=== PATIENT | female | born 1965 | race Caucasian/White ===

== ENCOUNTER 2017-04-17 09:16 | Outpatient (CLI) | payer OTHER ==
--- NOTE | 2017-04-17 17:27 | XRAY Report ---
FOUR VIEW LEFT WRIST: 04/17/2017 CLINICAL INDICATION: Pain. AP, lateral, oblique, scaphoid views of the left wrist demonstrate osteoarthritis of the first carpometacarpal joint. There is no evidence of acute fracture or dislocation. No radiopaque foreign body is seen in the soft tissues. IMPRESSION: Osteoarthritis of the first carpometacarpal joint. TD: 04/17/2017 18:19 [facility]
== END 2017-04-17 09:17 | disposition home or self-care (01) ==
LOC: DI.S 09:16
PROVIDERS: ATTEND Physician Assistant Medical
DX: M18.12 Unilateral primary osteoarthritis of first carpometacarpal joint, left hand (principal)

== ENCOUNTER 2017-04-18 08:00 | Outpatient (CLI) | payer OTHER ==
[2017-04-18 17:41] LABS: BASOPHILS # (AUTO) 0.1 10^3/uL (0.0-0.1); BASOPHILS % (AUTO) 1.5 %; EOSINOPHILS # (AUTO) 0.2 10^3/uL (0.0-0.7); HCT - HEMATOCRIT 42.6 % (37.0-47.0); LYMPHOCYTES # (AUTO) 1.1 10^3/uL (1.5-3.5); LYMPHOCYTES % (AUTO) 22.8 %; MEAN CORPUSCULAR HEMOGLOBIN 29.2 pg (27.0-31.0); MEAN CORPUSCULAR HGB CONC 32.9 g/dL (32.0-36.0); MEAN CORPUSCULAR VOLUME 88.7 fL (81.0-99.0); MONOCYTES # (AUTO) 0.4 10^3/uL (0.0-1.0); MONOCYTES % (AUTO) 7.9 %; NEUTROPHILS % (AUTO) 62.8 %; RED CELL DISTRIBUTION WIDTH 12.8 % (12.0-15.0); UNCORRECTED WHITE BLOOD COUNT 4.7 x10^3/uL; WHITE BLOOD COUNT 4.7 x10^3/uL (4.8-10.8)
[2017-04-18 18:41] LABS: ALBUMIN/GLOBULIN RATIO 1.2 (1.0-2.2); BILIRUBIN,TOTAL 0.5 mg/dL (0.2-1.0); BUN - BLOOD UREA NITROGEN 15 mg/dL (6-20); CALCIUM 9.4 mg/dL (8.5-10.3); CARBON DIOXIDE - CO2 28 mmol/L (21-32); CHLORIDE 102 mmol/L (101-111); CHOL/HDL RATIO 3.9 (<4.4); CHOLESTEROL 202 mg/dL; CREATININE 0.7 mg/dL (0.4-1.0); GFR - MDRD 88 (>89); GLUCOSE 88 mg/dL (70-100); HDL CHOLESTEROL 52 mg/dL; LDL/HDL RATIO 2.5 (<4.4); POTASSIUM 3.9 mmol/L (3.5-5.0); SODIUM 138 mmol/L (135-145); TOTAL PROTEIN 7.6 g/dL (6.7-8.2); TRIGLYCERIDES 99 mg/dL; VLDL CHOLESTEROL 20 mg/dL
== END 2017-04-18 08:01 | disposition home or self-care (01) ==
LOC: LAB.F 08:00
PROVIDERS: ATTEND Physician Assistant Medical
DX: Z00.00 Encounter for general adult medical examination without abnormal findings (principal); E55.9 Vitamin D deficiency, unspecified
CPT/HCPCS: 36415; 80053; 80061; 82306; 84443; 85025

== ENCOUNTER 2017-04-18 11:20 | Outpatient (CLI) | payer OTHER | END 2017-04-18 11:21 | disposition home or self-care (01) | LOC: LAB.F 11:20 | PROVIDERS: ATTEND Physician Assistant Medical | DX: Z00.00 Encounter for general adult medical examination without abnormal findings (principal); E55.9 Vitamin D deficiency, unspecified ==

== ENCOUNTER 2017-06-19 07:55 | Day surgery (SDC) | payer OTHER ==
[2017-06-19] MEDS ORDERED: LACTATED RINGERS 1,000 ML IV ONE (08:36)
[2017-06-19] MEDS ORDERED: MIDAZOLAM 2 MG/2 ML VIAL IVP ONE (08:51)
[2017-06-19] MEDS ORDERED: fentaNYL 100 MCG/2 ML VIAL IVP ONE (08:51)
[2017-06-19 10:00] VITALS: BP 109/71
== END 2017-06-19 07:56 | disposition home or self-care (01) ==
LOC: SDS 07:55
PROVIDERS: ATTEND Surgery
PROC: 0DBN8ZX Excision of Sigmoid Colon, Via Natural or Artificial Opening Endoscopic, Diagnostic (ICD-10-PCS; principal; 2017-06-19 09:00)
DX: Z12.11 Encounter for screening for malignant neoplasm of colon (principal); D12.5 Benign neoplasm of sigmoid colon; K64.8 Other hemorrhoids; K63.5 Polyp of colon; J45.909 Unspecified asthma, uncomplicated
CPT/HCPCS: 45380; J7120

== ENCOUNTER 2018-02-20 09:29 | Outpatient (CLI) | payer OTHER ==
[2018-02-20 18:18] LABS: BASOPHILS # (AUTO) 0.1 10^3/uL (0.0-0.1); BASOPHILS % (AUTO) 1.6 %; EOSINOPHILS # (AUTO) 0.3 10^3/uL (0.0-0.7); EOSINOPHILS % (AUTO) 5.9 %; LYMPHOCYTES % (AUTO) 21.7 %; MEAN CORPUSCULAR HEMOGLOBIN 29.5 pg (27.0-31.0); MEAN CORPUSCULAR HGB CONC 33.3 g/dL (32.0-36.0); MEAN CORPUSCULAR VOLUME 88.6 fL (81.0-99.0); MEAN PLATELET VOLUME 7.9 fL (7.9-10.8); MONOCYTES # (AUTO) 0.4 10^3/uL (0.0-1.0); MONOCYTES % (AUTO) 8.6 %; NEUTROPHILS # (AUTO) 2.8 10^3/uL (1.5-6.6); NEUTROPHILS % (AUTO) 62.2 %; PLT - PLATELET COUNT 296 10^3/uL (130-450); RED BLOOD COUNT 4.73 10^6/uL (4.20-5.40); RED CELL DISTRIBUTION WIDTH 12.9 % (12.0-15.0); WHITE BLOOD COUNT 4.5 x10^3/uL (4.8-10.8)
[2018-02-20 18:40] LABS: ALBUMIN 3.8 g/dL (3.2-5.5); ALBUMIN/GLOBULIN RATIO 1.1 (1.0-2.2); ALKALINE PHOSPHATASE 86 IU/L (42-121); ALT ALANINE AMINOTRANSFERASE 18 IU/L (10-60); AST ASPARTATE AMINOTRANSFERASE 19 IU/L (10-42); BUN - BLOOD UREA NITROGEN 12 mg/dL (6-20); CALCIUM 9.2 mg/dL (8.5-10.3); CARBON DIOXIDE - CO2 28 mmol/L (21-32); CHLORIDE 105 mmol/L (101-111); CHOL/HDL RATIO 3.5 (<4.4); CHOLESTEROL 232 mg/dL; CREATININE 0.7 mg/dL (0.4-1.0); GFR - MDRD 87 (>89); GLUCOSE 86 mg/dL (70-100); HDL CHOLESTEROL 67 mg/dL; LDL CHOLESTEROL,CALCULATED 143 mg/dL; LDL/HDL RATIO 2.1 (<4.4); SODIUM 140 mmol/L (135-145); TOTAL PROTEIN 7.4 g/dL (6.7-8.2); VLDL CHOLESTEROL 22 mg/dL
== END 2018-02-20 09:30 | disposition home or self-care (01) ==
LOC: LAB.F 09:29
PROVIDERS: ATTEND Physician Assistant Medical
DX: Z00.00 Encounter for general adult medical examination without abnormal findings (principal); I10 Essential (primary) hypertension; E78.70 Disorder of bile acid and cholesterol metabolism, unspecified; Z13.29 Encounter for screening for other suspected endocrine disorder
CPT/HCPCS: 36415; 80053; 80061; 83721; 84443; 85025

== ENCOUNTER 2018-12-17 09:02 | Outpatient (CLI) | payer OTHER ==
[2018-12-17 17:20] LABS: CHOL/HDL RATIO 3.9 (<4.4); CHOLESTEROL 238 mg/dL; HDL CHOLESTEROL 61 mg/dL; LDL CHOLESTEROL,CALCULATED 155 mg/dL; LDL/HDL RATIO 2.5 (<4.4); VLDL CHOLESTEROL 22 mg/dL
== END 2018-12-17 09:03 | disposition home or self-care (01) ==
LOC: LAB.S 09:02
PROVIDERS: ATTEND Physician Assistant Medical
DX: E78.00 Pure hypercholesterolemia, unspecified (principal); R53.83 Other fatigue; Z13.29 Encounter for screening for other suspected endocrine disorder
CPT/HCPCS: 36415; 80061; 83721; 84443

== ENCOUNTER 2019-07-09 09:51 | Outpatient (CLI) | payer OTHER ==
--- NOTE | 2019-07-09 13:09 | Mammography Report ---
Reason: RT BREAST PAIN Procedure Date: 07/09/2019 Accession Number: [id number] / [id number] Procedure: MIGUEL - Diagnostic Dig Bilat CPT Code: Final Report FULL RESULT: EXAM: Diagnostic Dig Bilat DATE: 07/09/2019 10:38 AM CLINICAL HISTORY: Right breast pain laterally towards the axilla. History of bilateral breast implants with subsequent removal on the left. TECHNIQUE: (B) - Bilateral CC and MLO views were obtained. Right ML view was also obtained and the right-sided images are performed in standard fashion and with implant displaced technique. COMPARISON: 02/15/2016 through 08/15/2009. PARENCHYMAL PATTERN: (A) - The breast(s) demonstrate(s) scattered fibroglandular densities. FINDINGS: A right breast retromammary silicone type implants with peripheral calcifications and loss of the smooth contour margin with lobulations which are most pronounced towards the right breast exam is noted. These findings are most consistent with contained implant rupture/loss of integrity, typically benign. There are no suspicious masses, calcifications, or areas of distortion. IMPRESSION: Benign findings. BI-RADS category 2. RECOMMENDATION: (ANNUAL) - Recommend routine annual screening mammography. The right breast implant rupture potentially accounts for the patient's pain. BI-RADS CATEGORY: (2) - Benign Findings. STANDARD QUALIFYING STATEMENTS: 1. This examination was not reviewed with the aid of Computer-Aided Detection (CAD). 2. A negative or benign imaging report should not preclude biopsy if clinically suspicious findings are present. 3. Dense breasts may obscure an underlying neoplasm. 4. This examination was reviewed with the aid of 3D breast imaging (tomosynthesis).
== END 2019-07-09 09:52 | disposition home or self-care (01) ==
LOC: DI 09:51
PROVIDERS: ATTEND Surgery
DX: N64.4 Mastodynia (principal); Z98.82 Breast implant status
CPT/HCPCS: 77066

== ENCOUNTER 2020-08-05 08:00 | Outpatient (CLI) | payer OTHER | END 2020-08-05 23:59 | disposition home or self-care (01) | LOC: LAB.S 08:00 | PROVIDERS: ATTEND Emergency Medicine | DX: L03.012 Cellulitis of left finger (principal) | CPT/HCPCS: 87070; 87205 ==

== ENCOUNTER 2020-10-02 14:26 | Outpatient (CLI) | payer OTHER ==
--- NOTE | 2020-10-02 11:16 | XRAY Report ---
PROCEDURE: Shoulder 3 View LT INDICATIONS: L SHOULDER PX TECHNIQUE: 4 views of the shoulder were acquired. COMPARISON: None. FINDINGS: Bones: No fractures or dislocations. No suspicious bony lesions. Visualized ribs appear intact. Soft tissues: No suspicious soft tissue calcifications. IMPRESSION: No acute fracture. No osseous lesion. If symptoms and/or clinical suspicion for patholog y continue, further assessment with repeat plain films, or advanced imaging (e.g., CT, MRI, or bone s can) is recommended for further assessment. Reviewed by: Shania Valenzuela MD on 10/02/2020 11:15 AM PDT Approved by: Shania Valenzuela MD on 10/02/2020 11:15 AM PDT Station ID: [id number]
== END 2020-10-02 23:59 | disposition home or self-care (01) ==
LOC: DI.N 14:26
PROVIDERS: ATTEND Physician Assistant
DX: M25.512 Pain in left shoulder (principal)

== ENCOUNTER 2023-07-22 08:48 | Outpatient (CLI) | payer OTHER ==
--- NOTE | 2023-07-23 09:56 | Mammography Report ---
BILATERAL DIGITAL SCREENING MAMMOGRAM 3D/2D WITH AUGMENTATION: 07/22/2023 CLINICAL: Routine screening. Family history of breast cancer. Comparison is made to exams dated: 07/09/2019 mammogram, 02/15/2016 mammogram, and 06/17/2013 mammogra m - formerly [facility]. Both breasts are almost entirely fatty (category a/<25% glandular tissue). No significant masses, calcifications, or other findings are seen in either breast. IMPRESSION: BENIGN The right implant has dense calcification of the capsule. A clinical correlation is recommended for further evaluation of the the known rputure of the right implant with interval increase in size and p rominence of ruptured silicone material in the upper, outer aspect of the implant. There is no mammographic evidence of malignancy. A 1 year screening mammogram is recommended. Based on the Tyrer Cuzick model (a risk assessment model) the patient's lifetime risk is 9.2% and her 10 year risk is 3.7%. According to the ACR, ACS, and NCCN guidelines, an annual breast MRI exam kasandra g with mammogram is recommended if the patient's lifetime risk is 20% or greater. This exam was interpreted at Station ID: [id number]. NOTE: For mammograms, a report in lay terms will be sent to the patient. Approximately 15% of breast malignancies will not be visualized mammographically. In the management of a palpable breast mass, a negative mammogram must not discourage biopsy of a clinically suspicious lesion. Electronically Signed By: Nathanael Lainez M.D. aty/:07/22/2023 18:01:35 ACR BI-RADS Category 2: Benign Finding(s) 3342F PARENCHYMAL PATTERN: (F) - The breast(s) demonstrate(s) diffuse fatty replacement. BI-RADS CATEGORY: (2) - 2 RECOMMENDATION: (ANNUAL) - Recommend routine annual screening mammography. [id number] 1 year screening LATERALITY: (B)
== END 2023-07-22 08:49 | disposition home or self-care (01) ==
LOC: DI.S 08:48
PROVIDERS: ATTEND Nurse Practitioner Family
DX: Z12.31 Encounter for screening mammogram for malignant neoplasm of breast (principal); Z80.3 Family history of malignant neoplasm of breast; Z98.82 Breast implant status